=== PATIENT | male | born 1945 | race Caucasian/White ===

== ENCOUNTER 2023-01-26 09:23 | Emergency (ER) | payer MEDICARE | END 2023-01-26 11:30 | disposition home or self-care (01) | LOC: JP.ED 09:23 | DX: K94.23 Gastrostomy malfunction (principal); I10 Essential (primary) hypertension; N40.0 Benign prostatic hyperplasia without lower urinary tract symptoms; Z79.899 Other long term (current) drug therapy | CPT/HCPCS: 99282 ==

== ENCOUNTER 2023-02-04 14:24 | Emergency (ER) | payer MEDICARE ==
[2023-02-04] MEDS ORDERED: Ondansetron 4 MG/2 ML SDV IVPUSH ONE (16:39)
[2023-02-04 16:51] LABS: EOSINOPHILS ABSOLUTE AUTO 0.05 K/uL (0.00-0.40); EOSINOPHILS PERCENT AUTO 2.6 % (0.0-5.4); HEMATOCRIT 34.6 % (38.4-49.7); HEMOGLOBIN 12.1 g/dL (12.9-16.9); IMMATURE GRAN PERCENT AUTO 0.5 % (0.0-0.7); LYMPHOCYTES ABSOLUTE AUTO 0.27 K/uL (0.8-3.3); LYMPHOCYTES PERCENT AUTO 14.3 % (11.4-47.7); MEAN CORPUSCULAR HEMOGLOBIN 31.8 pg (31.6-35.5); MEAN CORPUSCULAR VOLUME 90.8 fL (81.4-99.0); MONOCYTES ABSOLUTE AUTO 0.11 K/uL (0.20-0.90); MONOCYTES PERCENT AUTO 5.8 % (3.3-12.6); NEUTROPHILS ABSOLUTE AUTO 1.45 K/uL (1.0-7.6); NEUTROPHILS PERCENT AUTO 76.8 % (40.0-78.1); PLATELET COUNT,PLT 152 K/uL (130-375); RED BLOOD CELL COUNT 3.81 M/uL (4.14-5.76); WHITE BLOOD CELL COUNT,WBC 1.9 K/uL (3.2-11.0)
[2023-02-04 17:04] LABS: IMMATURE GRAN ABSOLUTE AUTO 0.01 K/uL (0.00-0.23)
[2023-02-04 17:06] LABS: CALCIUM 8.6 mg/dL (8.5-10.1); CREATININE 0.8 mg/dL (0.8-1.3); EST CRCL DRUG DOSING (CG) 64.85 mL/min; POTASSIUM,K 4.2 mmol/L (3.6-5.2)
[2023-02-04 17:10] LABS: ANION GAP 12.2 mmol/L (5.0-14.0)
[2023-02-04] MEDS ORDERED: Sodium Chloride 0.9% 1,000 ML IV SCH (17:30)
== END 2023-02-04 19:29 | disposition home or self-care (01) ==
LOC: JP.ED 14:24
DX: E86.0 Dehydration (principal); I48.91 Unspecified atrial fibrillation; I10 Essential (primary) hypertension; E78.00 Pure hypercholesterolemia, unspecified; E11.9 Type 2 diabetes mellitus without complications; Z79.899 Other long term (current) drug therapy
CPT/HCPCS: 36415; 80048; 85025; 96361; 96374; 99283; 99284; J2405; J7030